=== PATIENT | female | born 1985 | race Caucasian/White ===

== ENCOUNTER 2019-10-15 09:57 | Emergency (ER) | payer SELFPAY ==
[~2019-10-15] VITALS: Ht 165.1 cm; Wt 81.2 kg
[2019-10-15] MEDS ORDERED: ACETAMINOPHEN 650 MG/20.3 ML UDC ONE (10:15)
[2019-10-15 10:19] VITALS: BP 126/87
[2019-10-15 11:24] LABS: RAPID INFLUENZA A POSITIVE (Negative); RAPID INFLUENZA B Negative (Negative)
== END 2019-10-15 12:10 | disposition home or self-care (01) ==
LOC: ED 11:45
DX: S00.33XA Contusion of nose, initial encounter (principal); J10.1 Influenza due to other identified influenza virus with other respiratory manifestations; X58.XXXA Exposure to other specified factors, initial encounter; Y93.89 Activity, other specified; Y92.89 Other specified places as the place of occurrence of the external cause; Y99.8 Other external cause status
CPT/HCPCS: 70160; 71046; 87400; 99284